=== PATIENT | female | born 1990 | race Caucasian/White ===

== ENCOUNTER 2021-09-12 10:13 | Emergency (ER) | payer MEDICAID ==
[~2021-09-12] VITALS: Ht 165.1 cm; Wt 72.7 kg
[2021-09-12] MEDS ORDERED: SINGULAIR 110 MG/TAB PO (11:13)
[2021-09-12] MEDS ORDERED: PROAIR HFA0.09 MG/AC IH (11:14)
[2021-09-12] MEDS ORDERED: FLUTICASONE-SA1 EAC3 IH (11:14)
[2021-09-12] MEDS ORDERED: TRAMADOL 50 MG TAB PO (11:26)
[2021-09-12] MEDS ORDERED: CEPHALEXIN500 M1 PO (11:26)
[2021-09-12 11:46] VITALS: BP 118/75
== END 2021-09-12 11:50 | disposition home or self-care (01) ==
LOC: ED 10:13
DX: K04.7 Periapical abscess without sinus (principal); Z87.891 Personal history of nicotine dependence
CPT/HCPCS: J1885

== ENCOUNTER 2021-12-07 19:07 | Emergency (ER) | payer MEDICAID ==
[~2021-12-07] VITALS: Ht 165.1 cm; Wt 50.9 kg
[~2021-12-07 19:07] MED LIST: CEPHALEXIN500 M1 PO; FLUTICASONE-SA1 EAC3 IH; PROAIR HFA0.09 MG/AC IH; SINGULAIR 110 MG/TAB PO; TRAMADOL 50 MG TAB PO
[2021-12-07] MEDS ORDERED: CYCLOBENZAPRINE10 M1 PO (21:19)
[2021-12-07 21:29] VITALS: BP 142/72
== END 2021-12-07 21:29 | disposition home or self-care (01) ==
LOC: ED 19:07
DX: S09.90XA Unspecified injury of head, initial encounter (principal); S00.81XA Abrasion of other part of head, initial encounter; M54.2 Cervicalgia; M79.622 Pain in left upper arm; V86.59XA Driver of other special all-terrain or other off-road motor vehicle injured in nontraffic accident, initial encounter; Y92.410 Unspecified street and highway as the place of occurrence of the external cause
CPT/HCPCS: L0172